=== PATIENT | male | born 1985 ===

== ENCOUNTER → 2018-01-31 | Outpatient (REF) ==
[2018-01-31 09:46] LABS: LDL CHOLESTEROL 90 mg/dl
== END ==
DX: Z02.9 Encounter for administrative examinations, unspecified (principal)

== ENCOUNTER → 2019-01-28 | Outpatient (REF) ==
[2019-01-28 09:54] LABS: LDL CHOLESTEROL 77 mg/dl
== END ==
DX: Z02.9 Encounter for administrative examinations, unspecified (principal)

== ENCOUNTER → 2019-02-17 | Outpatient (CLI) | payer OTHER ==
[~2019-02-17] MED LIST: VALA100059 PO
== END ==
LOC: LAB 11:10
PROVIDERS: ATTEND Emergency Medicine
DX: G62.9 Polyneuropathy, unspecified (principal)
CPT/HCPCS: 36415; 82607